=== PATIENT | female | born 1970 | race Caucasian/White ===

== ENCOUNTER 2017-08-15 13:09 | Emergency (ER) | payer OTHER ==
[2017-08-15 14:47] LABS: ABS Basophils 0 10^3/ul (0-0.2); ABS Eosinophils 0.1 10^3/ul (0-0.6); ABS Lymphocytes 1.6 10^3/ul (1.0-4.8); ABS Monocytes 0.5 10^3/ul (0-0.8); ABS Neutrophils 4.8 10^3/ul (1.5-7.7); ABS Nucleated RBC 0 10^3/ul; Eosinophil % 0.7 % (0-6); Hematocrit 41 % (35-47); Hemoglobin 13.6 g/dl (12.0-16.0); Lymphocyte % 23.2 % (25-47); Mean Corpuscular HGB Conc 34 g/dl (31-36); Mean Corpuscular Hemoglobin 28 pg (27-31); Mean Corpuscular Volume 84 fL (80-97); Mean Platelet Volume 9 um3 (7.4-10.4); Nucleated Red Blood Cells % 0; Platelet Count 240 10^3/ul (150-450); Red Blood Count 4.85 10^6/ul (4.0-5.4); Red Cell Distribution Width 14 % (10.5-15)
--- NOTE | 2017-08-15 14:57 | RAD ---
INDICATION: Chest pain COMPARISON: February 18, 2015 TECHNIQUE: An AP portable view obtained at 1410 hours is submitted. FINDINGS: Bones/Soft Tissues: There are no acute bony findings. Cardiomediastinal: The cardiomediastinal silhouette is normal. Lungs: There are no infiltrates. Pleura: There are no pleural effusions. Other: None IMPRESSION: NO ACTIVE DISEASE.
--- NOTE | 2017-08-15 14:58 | ED ---
HPI Chest Pain - HPI Summary HPI Summary: Patient presents to the ED with chief complaint of chest pain which occurred around 9 AM while working. She endorses a feeling of tightness in her mid sternal area which radiates over to the left shoulder as a burning sensation. The episode lasted approximately 30 minutes but the burning continues at this time. The symptoms are not constant and remain intermittent 5 hours. No significant personal cardiac history, but patient endorses strong family history including father from a massive DE and first DE was at the age of 53. Patient is 46 currently. She was recently placed on lisinopril 5 mg by her PCP a few months ago for 1 episode of elevated hypertension at approximately 156/100. Denies any nausea, vomiting, diarrhea, constipation. Denies any headaches, dizziness. The pain does not radiate through to the back. Denies any urinary symptoms. She does not feel weak. Denies any blurry vision double vision or other symptoms at this time. She states she feels otherwise stable. - History of Current Complaint Chief Complaint: EDChestPainROMI Time Seen by Provider: 08/15/17 13:48 Hx Obtained From: Patient Onset/Duration: Started Hours Ago Timing: Constant Initial Severity: Moderate Current Severity: Moderate Pain Intensity: 4 Pain Scale Used: 0-10 Numeric Chest Pain Location: Discrete at:, Left Anterior Chest Pain Radiates: Yes Chest Pain Radiates To:: Shoulder Character: Burning, Dull/Aching Aggravating Factor(s): Nothing Alleviating Factor(s): Nothing Associated Signs and Symptoms: Positive: Negative - Risk Factors Pulmonary Embolism Risk Factors: Negative TAD Risk Factors: Negative AMI/ACS Risk Factors: Obesity, Family History, Hypertension - Allergy/Home Medications Allergies/Adverse Reactions: Allergies Allergy/AdvReac Type Severity Reaction Status Date / Time No Known Allergies Allergy Verified 10/23/16 13:18 PMH/Surg Hx/FS Hx/Imm Hx Previously Healthy: Yes Endocrine/Hematology History: Denies: Hx Diabetes, Hx Systemic Lupus Erythematosus Cardiovascular History: Denies: Hx Congestive Heart Failure, Hx Hypertension, Hx Pacemaker/ICD History: Denies: Hx Dialysis, Hx Renal Disease Musculoskeletal History: Denies: Hx Rheumatoid Arthritis Sensory History: Denies: Hx Hearing Aid Psychiatric History: Denies: Hx Panic Disorder - Cancer History Hx Chemotherapy: No Hx Radiation Therapy: No - Surgical History Surgery Procedure, Year, and Place: Hysterectomy 2014, Right bicep tendon repair 2010, 2 c-sections 98, 01, partial thyroidectomy 1994, tonsillectomy 1991 Infectious Disease History: No Infectious Disease History: Denies: Traveled Outside the [place] in Last 30 Days - Social History Occupation: Employed Full-time Lives: With Family Alcohol Use: Rare Hx Substance Use: No Substance Use Type: Reports: None Hx Tobacco Use: No Smoking Status (MU): Never Smoked Tobacco Review of Systems Constitutional: Negative Negative: Fever, Chills, Skin Diaphoresis Eyes: Negative Positive: Chest Pain Negative: Shortness Of Breath, Cough Gastrointestinal: Negative Negative: Abdominal Pain, Vomiting, Diarrhea, Nausea Genitourinary: Negative Positive: no symptoms reported Skin: Negative Negative: Headache, Weakness, Paresthesia, Numbness Negative: Anxious, Depressed All Other Systems Reviewed And Are Negative: Yes Physical Exam Triage Information Reviewed: Yes Vital Signs On Initial Exam: Initial Vitals Temp Pulse Resp BP Pulse Ox 99.0 F 92 18 184/86 100 08/15/17 13:10 08/15/17 13:10 08/15/17 13:10 08/15/17 13:10 08/15/17 13:10 Vital Signs Reviewed: Yes Appearance: Positive: Well-Appearing, Well-Nourished Skin: Positive: Warm, Skin Color Reflects Adequate Perfusion Head/Face: Positive: Normal Head/Face Inspection Eyes: Positive: EOMI, NAKITA, Conjunctiva Clear Neck: Positive: Supple, Nontender, No Lymphadenopathy Respiratory/Lung Sounds: Positive: Clear to Auscultation, Breath Sounds Present Cardiovascular: Positive: Normal, RRR, Pulses are Symmetrical in both Upper and Lower Extremities. Negative: Leg Edema Left, Leg Edema Right Musculoskeletal: Positive: Normal, Strength/ROM Intact Neurological: Positive: Speech Normal Psychiatric: Positive: Normal, Affect/Mood Appropriate AVPU Assessment: Alert Diagnostics - Vital Signs Vital Signs Temp Pulse Resp BP Pulse Ox 08/15/17 13:10 99.0 F 92 18 184/86 100 - Laboratory Lab Results: Lab Results 08/15/17 Range/Units 14:33 WBC 7.0 (3.5-10.8) 10^3/ul RBC 4.85 (4.0-5.4) 10^6/ul Hgb 13.6 (12.0-16.0) g/dl Hct 41 (35-47) % MCV 84 (80-97) fL MCH 28 (27-31) pg MCHC 34 (31-36) g/dl RDW 14 (10.5-15) % Plt Count 240 (150-450) 10^3/ul MPV 9 (7.4-10.4) um3 Neut % (Auto) 68.7 (38-83) % Lymph % (Auto) 23.2 L (25-47) % [place] % (Auto) 7.2 H (0-7) % Eos % (Auto) 0.7 (0-6) % Baso % (Auto) 0.2 (0-2) % Absolute Neuts (auto) 4.8 (1.5-7.7) 10^3/ul Absolute Lymphs (auto) 1.6 (1.0-4.8) 10^3/ul Absolute Monos (auto) 0.5 (0-0.8) 10^3/ul Absolute Eos (auto) 0.1 (0-0.6) 10^3/ul Absolute Basos (auto) 0 (0-0.2) 10^3/ul Absolute Nucleated RBC 0 10^3/ul Nucleated RBC % 0 Result Diagrams: 08/15/17 14:33 08/15/17 14:33 Lab Statement: Any lab studies that have been ordered have been reviewed, and results considered in the medical decision making process. Chest Pain Course/Dx - Course Course Of Treatment: During the course of treatment the patient was evaluated for midsternal chest pain radiating over into the left shoulder. Labs obtained , chest x-ray, EKG. EKG normal sinus rhythm. Chest x-ray shows no cardio pulmonary disease which is active. Labs obtained which are all within normal limits including a troponin of 0.00. This was repeated on a three-hour marker of troponin 0.00. D-dimer is negative. Toradol is given with a moderate amount of effect. This is likely due to the pain from a costochondritis. This was explained to the patient. She is still given a cardiology follow-up and she will call for an appointment tomorrow morning. I do not feel at this time the patient is in danger of a DE or other cardiac episode. She is safe to go home. Patient is made aware of all results and she is okay for discharg. - Chest Pain Differential Diagnosis/HQI/PQRI: Angina, Chest Wall - Diagnoses Provider Diagnoses: Chest wall pain Discharge - Discharge Plan Condition: Stable Disposition: HOME Patient Education Materials: Chest Pain (ED), Costochondritis (ED) Referrals: Rocio Aguilar MD [Medical Doctor] - Humberto Field MD [Primary Care Provider] - Additional Instructions: Please follow up with cardiology If symptoms worsen or persist, please follow up with PCP or return to the ED Ibuprofen 600 mg 3 times daily for the next 3 days
[2017-08-15 15:06] LABS: EGFR Non-African American 67.7 (>60)
[2017-08-15 15:17] LABS: INR 0.86 (0.77-1.02)
[2017-08-15 15:30] LABS: Urine Appearance Clear; Urine Blood 1+ (Negative); Urine Color Straw; Urine Ketones Negative (Negative); Urine Protein Negative (Negative); Urine Specific Gravity 1.004 (1.010-1.030); Urine Urobilinogen Negative (Negative)
[2017-08-15] MEDS ORDERED: Ketorolac INJ* 60 MG/2 ML VIAL IM ONE (16:14)
[2017-08-15 16:59] VITALS: BP 128/74
== END 2017-08-15 17:20 | disposition home or self-care (01) ==
LOC: ED 13:09
DX: R07.89 Other chest pain (principal)
CPT/HCPCS: 36415; 71045; 80053; 81003; 81015; 82550; 82553; 83605; 83735; 84436; 84443; 84484; 84702; 85025; 85379; 85610; 87086; 93005; 96372; 99282; J1885